=== PATIENT | male | born 1955 | race Caucasian/White ===

== ENCOUNTER 2021-12-29 10:55 | Inpatient (IN) | payer OTHER, MEDICAID ==
[~2021-12-29] VITALS: Ht 170.2 cm; Wt 59.0 kg
--- NOTE | 2021-12-29 11:03 | NUR ---
Patient to ER bed 2 to gown for evaluation. Side rails up. Report given to Kat MORA.
[2021-12-29 11:05] VITALS: BP_SYST 118
--- NOTE | 2021-12-29 11:09 | NUR ---
ER at bedside examining patient.
--- NOTE | 2021-12-29 11:13 | NUR ---
Radiology at bedside for chest xray.
--- NOTE | 2021-12-29 11:17 | NUR ---
Lab at bedside.
--- NOTE | 2021-12-29 11:20 | NUR ---
Pt coming from [facility] due to ascites for a couple weeks. Patient has abdominal distention noted. (-)TTP on abdomen. Patient reports pain 0/10 at this time. Nad noted at this time. Will continue to monitor.
[2021-12-29 11:50] LABS: ANION GAP 5 (5-15); CHLORIDE 100 mmol/L (98-107); CREATININE 1.47 mg/dL (0.55-1.30); GLUCOSE 130 mg/dL (70-99); POTASSIUM 5.3 mmol/L (3.5-5.1); SODIUM SERUM 130 mmol/L (136-145); UREA NITROGEN, BLOOD 48 mg/dL (8-21)
[2021-12-29 11:53] LABS: BASOPHILS % (AUTO) 0.5 % (0.0-2.0); EOSINOPHILS # (AUTO) 0.1 K/uL (0.0-0.4); EOSINOPHILS % (AUTO) 0.9 % (0.0-4.0); HEMATOCRIT 33.2 % (36-54); HEMOGLOBIN 11.5 g/dL (14.0-18.0); LYMPHOCYTES # (AUTO) 1.2 K/uL (1.0-5.5); LYMPHOCYTES % (AUTO) 18.3 % (20.5-51.5); MEAN CORPUSCULAR HEMOGLOBIN 35 pg (27-31); MEAN CORPUSCULAR HGB CONC 35 % (32-36); MEAN CORPUSCULAR VOLUME 101 fL (79.0-98.0); MONOCYTES # (AUTO) 0.6 K/uL (0.0-1.0); MONOCYTES % (AUTO) 9.2 % (1.7-9.3); NEUTROPHILS # (AUTO) 4.5 K/uL (1.8-7.7); NEUTROPHILS % (AUTO) 71.1 % (40.0-70.0); PLATELET COUNT (AUTO) 209 K/uL (130-430); RED BLOOD CELL COUNT(AUTO) 3.31 MIL/uL (4.2-6.2); RED CELL DISTRIBUTION WIDTH 14.6 % (9.0-15.0); WHITE BLOOD COUNT (AUTO) 6.3 K/uL (4.8-10.8)
[2021-12-29 12:00] LABS: GFR AFRICAN AMERICAN 62 mL/min (>90)
[2021-12-29 12:15] LABS: ALANINE AMINOTRANSFERASE 102 U/L (12-78); ALBUMIN 2.2 g/dL (3.4-4.8); ASPARTATE AMINOTRANSFERASE 121 U/L (10-37); TOTAL BILIRUBIN 0.5 mg/dL (0.0-1.0)
--- NOTE | 2021-12-29 12:27 | NUR ---
COVID SPECIMEN OBTAINED AND LABELLED, SENT TO LAB
[2021-12-29] MEDS ORDERED: INSULIN REGULAR, HUMAN 10 UNITS/0.1 ML INJ IVP ONE (12:30)
[2021-12-29] MEDS ORDERED: LACTULOSE 20 GM/30 ML UDC PO ONE (12:30)
[2021-12-29] MEDS ORDERED: DEXTROSE 50% JECT 50 ML DISP.SYRIN IVP ONE (12:30)
[2021-12-29 12:32] LABS: LIPASE 2166 U/L (73-393)
[2021-12-29] MEDS ORDERED: SODIUM POLYSTYRENE SULFONATE 15 GM/60 ML UDBTL PO ONE (13:00)
--- NOTE | 2021-12-29 13:11 | NUR ---
Unable to order PT/PTT and INR order due to coding.
--- NOTE | 2021-12-29 13:12 | NUR ---
Admit bed requested Patient will be admitted to care of . Admitted to med sure unit. Diagnosis acites and Liver cirrhosis Inpatient (Yes or No) y Observation (Yes or No) n Orientation concerns or request close to nursing station (Yes or No) n Covid Status pending On vent or bipap n Isolation requirements n Needs a sitter n From Home (Yes or if No enter name of facility) [facility] Requires Dialysis (Yes or No) n Med Rec Completed (Yes of No) y
--- NOTE | 2021-12-29 13:34 | NUR ---
Covid and MRSA swab done and sent to lab.
--- NOTE | 2021-12-29 13:54 | NUR ---
Patient resting quietly with side rail raised. No acute distress noted. Vital signs within normal range. Will continue to monitor.
[2021-12-29] MEDS ORDERED: RIFA550T5 PO (14:12)
[2021-12-29] MEDS ORDERED: PROP10TA10 PO (14:12)
[2021-12-29] MEDS ORDERED: ASCO500T20 PO (14:12)
[2021-12-29] MEDS ORDERED: MULT-1117 PO (14:12)
[2021-12-29] MEDS ORDERED: METF-518 PO (14:12)
[2021-12-29] MEDS ORDERED: SSREG SUBCUT (14:17)
--- NOTE | 2021-12-29 14:28 | NUR ---
Attempted to give report; RN in med surg floor not available.
[2021-12-29] MEDS: LACTULOSE 20 GM/30 ML UDC PO SCH ×2 (15:00→19:00)
--- NOTE | 2021-12-29 15:00 | NUR ---
ADMISSION NOTE Received patient from ER via gurney. Patient admitted with diagnosis of Liver Cirrhosis. Patient is awake, alert, oriented X 4. Patient oriented to hospital room, call light, toileting, pain management and safety-teach back done. Patient informed that Myriam will be her nurse and that their room number is 122-A. Personal belongings checked and Belongings List documented. Call light within reach.
[2021-12-29 15:10] VITALS: BP_SYST 115
--- NOTE | 2021-12-29 15:31 | NUR ---
CONSULTATION PAGED/CALLED Reason for Consultation: [] ASCITES Person Who was Notified: [] MARCO Consulting Physician: [] DR WARE Auctioneer Art Specialty: [] MARCO Ordering Physician: [] DR CHAPPELL
[2021-12-29] MEDS: NORMAL SALINE 5 ML DISP.SYRIN IVF SCH ×2 (17:31→22:39)
[2021-12-29 18:38] VITALS: BP_SYST 115
[2021-12-29 20:05] VITALS: BP_SYST 89
[2021-12-30] VITALS: BP_SYST 88
[2021-12-30] MEDS: LACTULOSE 20 GM/30 ML UDC PO SCH ×7 (01:08→22:15)
--- NOTE | 2021-12-30 04:00 | NUR ---
PATIENT CONTINUED TO HAVE SBP IN THE HIGH 80'S BUT ASYMPTOMATIC, NO C/O DIZZINESS OR WEAKNESS.
[2021-12-30 08:00] VITALS: BP_SYST 83
[2021-12-30 08:34] LABS: BASOPHILS % (AUTO) 0.4 % (0.0-2.0); EOSINOPHILS # (AUTO) 0.1 K/uL (0.0-0.4); EOSINOPHILS % (AUTO) 0.8 % (0.0-4.0); HEMATOCRIT 29.8 % (36-54); HEMOGLOBIN 10.5 g/dL (14.0-18.0); LYMPHOCYTES # (AUTO) 1.1 K/uL (1.0-5.5); LYMPHOCYTES % (AUTO) 17.5 % (20.5-51.5); MEAN CORPUSCULAR HEMOGLOBIN 35 pg (27-31); MEAN CORPUSCULAR HGB CONC 35 % (32-36); MEAN CORPUSCULAR VOLUME 100 fL (79.0-98.0); MONOCYTES # (AUTO) 0.5 K/uL (0.0-1.0); MONOCYTES % (AUTO) 7.6 % (1.7-9.3); NEUTROPHILS # (AUTO) 4.8 K/uL (1.8-7.7); NEUTROPHILS % (AUTO) 73.7 % (40.0-70.0); PLATELET COUNT (AUTO) 216 K/uL (130-430); RED BLOOD CELL COUNT(AUTO) 2.98 MIL/uL (4.2-6.2); RED CELL DISTRIBUTION WIDTH 14.8 % (9.0-15.0); WHITE BLOOD COUNT (AUTO) 6.6 K/uL (4.8-10.8)
[2021-12-30 08:53] LABS: CALCIUM 7.8 mg/dL (8.4-11.0); CREATININE 1.32 mg/dL (0.55-1.30); POTASSIUM 3.2 mmol/L (3.5-5.1)
[2021-12-30 09:07] LABS: THYROID STIMULATING HORMONE 2.59 uIu/mL (0.36-3.74); TOTAL BILIRUBIN 0.5 mg/dL (0.0-1.0)
[2021-12-30 12:00] VITALS: BP_SYST 106
[2021-12-30] MEDS ORDERED: POTASSIUM CHLORIDE 20 MEQ TAB.PRT.SR PO ONE (14:00)
[2021-12-30] MEDS ORDERED: DIATR MEGLU/DIATRIZ SOD 30 ML SOLUTION PO ONE (14:11)
[2021-12-30] MEDS: NORMAL SALINE 5 ML DISP.SYRIN IVF SCH ×2 (18:15→22:00)
--- NOTE | 2021-12-30 18:40 | NUR ---
Dr Nelson contacted and made aware that Mr Brock has elected not to complete oral contrast stating that it was too much to drink. Dr Nelson stated that the client could still complete the exam without contrast. Staff from CT came to collect Mr Brock for the exam and he then stated that he would try to drink the contrast within the next few hours.
--- NOTE | 2021-12-30 18:45 | NUR ---
Hand off has been given to Marv
--- NOTE | 2021-12-30 18:45 | NUR ---
danis Lozano has been assessed as indicated. He continues to deny pain. He completed a paracentesis today with 4L of fluid removed. The fluid was taken to the lab for examination. He tolerated the procedure well. He requests lots of orange juice this shift. He has completed no less than 6 servings. He has declined his lactulose. He states that this is because it causes loose stools and he prefers to take that medication at home where he finds it easier to use the restroom. He continues to deny pain. 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 Mr Brock thought that he heard is brother and sister in law in the hallway. They were not here. He was unable to recall the number so that they could be contacted for him to speak to them. The number was obtained from his daughter Nita. His [id number] is April Brock [phone]. Both of these numbers were given to the incoming shift with the hopes that they will be able to assist Mr Brock with placing calls to both of them. At this time Mr Brock has no s/s of distress or discomfort and is resting quietly
[2021-12-30 20:00] VITALS: BP_SYST 83
[2021-12-30 20:21] LABS: APPEARANCE,SPUN,BODY FLUID SLIGHTLY HAZY (CLEAR); BODY FLUID COLOR LT YELLOW (LT YELLOW); BODY FLUID TOTAL VOLUME 4900 mL; RBC, BODY FLUID 7 /uL; SOURCE/TYPE ,BODY FLUID PARACENTESIS; WBC, BODY FLUID 23 /uL
[2021-12-30 20:22] LABS: LYMPHOCYTES, BODY FLUID 71 %; MONOCYTES,BODY FLUID 5 %; NEUTROPHIL, BODY FLUID 24 %
[2021-12-30 20:23] LABS: BF APPEARANCE UNSPUN SLIGHTLY HAZY (CLEAR)
[2021-12-30] MEDS ORDERED: ALBUMIN HUMAN 25% 200 ML IV ONE (20:45)
--- NOTE | 2021-12-30 20:45 | NUR ---
handoff was given at 1915
--- NOTE | 2021-12-30 21:59 | NUR ---
recieved pt from am nurse. pt is aox3-4, anxious, lungs are clear, pt is emaciated. pt cleared 50% of dinner plate. Pt is ambulatory but weak. Patient admitted with diagnosis of Liver Cirrhosis.. Patient oriented to hospital room, call light, toileting, pain management and safety-teach back done. Patient informed that daughter jono is in contact with him to help ease anxiety. Pt scheduled for cat scan in PM. Call light within reach.
--- NOTE | 2021-12-30 22:01 | NUR ---
pt recieving 200 ml 25% albumin for low bp per MD. bp 80/40
[2021-12-31] VITALS: BP_SYST 88
[2021-12-31] MEDS: LACTULOSE 20 GM/30 ML UDC PO SCH ×6 (03:00→23:00)
[2021-12-31] MEDS: NORMAL SALINE 5 ML DISP.SYRIN IVF SCH (06:00)
[2021-12-31 07:00] VITALS: BP_SYST 104
[2021-12-31 08:00] VITALS: BP_SYST 104
[2021-12-31 08:32] LABS: ALBUMIN 2.1 g/dL (3.4-4.8); CALCIUM 7.6 mg/dL (8.4-11.0); CREATININE 1.24 mg/dL (0.55-1.30); POTASSIUM 4.9 mmol/L (3.5-5.1); TOTAL BILIRUBIN 0.4 mg/dL (0.0-1.0)
[2021-12-31 08:39] LABS: BASOPHILS % (AUTO) 0.3 % (0.0-2.0); EOSINOPHILS % (AUTO) 0.5 % (0.0-4.0); HEMATOCRIT 31.7 % (36-54); HEMOGLOBIN 10.9 g/dL (14.0-18.0); LYMPHOCYTES # (AUTO) 0.7 K/uL (1.0-5.5); LYMPHOCYTES % (AUTO) 10.7 % (20.5-51.5); MEAN CORPUSCULAR HEMOGLOBIN 34 pg (27-31); MEAN CORPUSCULAR HGB CONC 34 % (32-36); MEAN CORPUSCULAR VOLUME 100 fL (79.0-98.0); MONOCYTES # (AUTO) 0.5 K/uL (0.0-1.0); MONOCYTES % (AUTO) 6.8 % (1.7-9.3); NEUTROPHILS # (AUTO) 5.4 K/uL (1.8-7.7); NEUTROPHILS % (AUTO) 81.7 % (40.0-70.0); PLATELET COUNT (AUTO) 217 K/uL (130-430); RED BLOOD CELL COUNT(AUTO) 3.17 MIL/uL (4.2-6.2); RED CELL DISTRIBUTION WIDTH 14.9 % (9.0-15.0); WHITE BLOOD COUNT (AUTO) 6.7 K/uL (4.8-10.8)
[2021-12-31 08:47] LABS: TOTAL IRON BIND. CAPACITY 72 ug/dL (250-450)
[2021-12-31 09:07] LABS: PROTHROMBIN TIME 10.6 SECS (9.5-12.5)
[2021-12-31 10:57] LABS: BODY FLUID GLUCOSE 133 mg/dL
[2021-12-31 11:01] LABS: BODY FLUID TOTAL PROTEIN 1.4 g/dL
[2021-12-31 12:00] VITALS: BP_SYST 97
--- NOTE | 2021-12-31 15:20 | NUR ---
Dietitian Recommendations * CCHO, Mechanical Soft, Finely Chopped diet, Glucerna BID (ONS yields 440 kcal/day, 20 gm protein/day) * Encourage increase PO intakes LP, MS, RD Please refer to Nutrition Assessment for details. Addendum: 12/31/21 at [address] Amended: Links added.
[2021-12-31 16:16] VITALS: BP_SYST 96
--- NOTE | 2021-12-31 18:25 | NUR ---
Patient still not eating despite getting "N[place]ien dish delivered to him as requested." Patient reinforced teaching to put food in his stomach and drink liquids as tolerated. Per patient, does not feel like eating
--- NOTE | 2021-12-31 19:18 | NUR ---
END OF SHIFT REPORT GIVEN TO ABBY METZGER. THANK YOU
[2022-01-01] MEDS: LACTULOSE 20 GM/30 ML UDC PO SCH ×5 (03:00→15:00)
[2022-01-01] MEDS: NORMAL SALINE 5 ML DISP.SYRIN IVF SCH ×2 (06:00→14:47)
[2022-01-01 08:00] VITALS: BP_SYST 82
--- NOTE | 2022-01-01 08:00 | NUR ---
OPENING NOTE Patient in bed resting, no sign of distress or pain. IV site is clean, dry, intact and saline locked. Patient drank his entire ensure for breakfast. All needs met at this time and safety checks made.
[2022-01-01 08:06] LABS: AFP, TUMOR MARKER 2.4 ng/mL (0.0-8.4)
--- NOTE | 2022-01-01 10:33 | NUR ---
FANCY STITCHER TO BEDSIDE TO SEE PATIENT FANCY STITCHER spoke with patient, no new orders at this time. FANCY STITCHER is aware that patient has been refusing his enulose.
[2022-01-01] MEDS ORDERED: ACETAMINOPHEN 325 MG TABLET PO PRN (10:45)
[2022-01-01 11:06] LABS: HEPATITIS A AB, IgM Negative (Negative); HEPATITIS B CORE AB, IgM Negative (Negative); HEPATITIS B SURFACE AG Negative (Negative)
[2022-01-01 12:00] VITALS: BP_SYST 99
--- NOTE | 2022-01-01 14:08 | NUR ---
Cm : faxed snf referral and dc back order to [facility] fax # [phone], and received call back from juan Rock room # 29 C, report # tel [phone]. 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 --PAUL Card made aware, dc package placed in nursing unit. Dispo code 03.
--- NOTE | 2022-01-01 16:13 | NUR ---
REPORT GIVEN TO FACILITY Spoke to ABBY Raygoza at [facility] and gave report. All questions answered.
--- NOTE | 2022-01-01 16:14 | NUR ---
PT TRANSFERRED Report given to Idalmis at [facility]. Transfer packet with Transfer Orders and Medication Reconciliation form given to EMT with report. Exitcare provided. [facility] ID band removed, replaced with ID band with pt's name and . IV catheter removed, intact and dressing applied, no active bleeding. All belongings sent with patient. Patient left floor via gurney escorted by EMT in no distress.
--- NOTE | 2022-01-02 08:33 | NUR ---
Dispo code 03
[2022-01-02 13:41] LABS: FERRITIN 1492 ng/mL (30-400)
== END 2022-01-01 16:15 | DRG 432 ==
LOC: SED 10:55 → SMU 12:56
PROVIDERS: ADMIT Internal Medicine; ATTEND Internal Medicine
PROC: 0W9G3ZZ Drainage of Peritoneal Cavity, Percutaneous Approach (ICD-10-PCS; principal; 2021-12-30)
DX: K70.40 Alcoholic hepatic failure without coma (principal); N17.0 Acute kidney failure with tubular necrosis; K70.31 Alcoholic cirrhosis of liver with ascites; D64.9 Anemia, unspecified; E11.9 Type 2 diabetes mellitus without complications; F10.20 Alcohol dependence, uncomplicated; B19.20 Unspecified viral hepatitis C without hepatic coma; Z20.822 Contact with and (suspected) exposure to COVID-19; Z79.899 Other long term (current) drug therapy
CPT/HCPCS: 36415; 49083; 71045; 76376; 76700-TC; 80053; 80074; 82042; 82105; 82140; 82728; 82947; 83540; 83550; 83690; 83880; 84157; 84443; 84484; 85025; 85610-TC; 85730-TC; 87070-TC; 87081; 88108; 89051-TC; 89060-TC; 93005; 99285; Q9964

== ENCOUNTER 2022-01-16 19:44 | Inpatient (IN) | payer OTHER, MEDICAID ==
[~2022-01-16] VITALS: Ht 170.2 cm; Wt 54.4 kg
[~2022-01-16 19:44] MED LIST: ASCO500T20 PO; METF-518 PO; MULT-1117 PO; PROP10TA10 PO; RIFA550T5 PO; SSREG SUBCUT
[2022-01-16 21:05] VITALS: BP_SYST 106
[2022-01-16 22:11] LABS: BASOPHILS % (AUTO) 0.4 % (0.0-2.0); EOSINOPHILS % (AUTO) 0.3 % (0.0-4.0); HEMATOCRIT 30.4 % (36-54); HEMOGLOBIN 10.5 g/dL (14.0-18.0); LYMPHOCYTES # (AUTO) 1.1 K/uL (1.0-5.5); LYMPHOCYTES % (AUTO) 13.2 % (20.5-51.5); MEAN CORPUSCULAR HEMOGLOBIN 34 pg (27-31); MEAN CORPUSCULAR HGB CONC 34 % (32-36); MEAN CORPUSCULAR VOLUME 100 fL (79.0-98.0); MONOCYTES # (AUTO) 0.4 K/uL (0.0-1.0); MONOCYTES % (AUTO) 4.4 % (1.7-9.3); NEUTROPHILS # (AUTO) 6.7 K/uL (1.8-7.7); NEUTROPHILS % (AUTO) 81.7 % (40.0-70.0); PLATELET COUNT (AUTO) 181 K/uL (130-430); RED BLOOD CELL COUNT(AUTO) 3.05 MIL/uL (4.2-6.2); WHITE BLOOD COUNT (AUTO) 8.2 K/uL (4.8-10.8)
[2022-01-16 22:15] LABS: CREATININE 1.55 mg/dL (0.55-1.30); POTASSIUM 4.3 mmol/L (3.5-5.1)
[2022-01-16 22:18] LABS: INR 1.1 (0.80-1.20); PROTHROMBIN TIME 11.1 SECS (9.5-12.5)
[2022-01-16 22:32] LABS: ALBUMIN 1.8 g/dL (3.4-4.8); C-REACTIVE PROTEIN QUANT 2.3 mg/dL (0-0.5); TOTAL BILIRUBIN 0.4 mg/dL (0.0-1.0)
[2022-01-16] MEDS ORDERED: ONDANSETRON HCL 4 MG/2 ML VIAL IVP PRN (23:30)
[2022-01-16] MEDS ORDERED: D5/0.45 NS 1,000 ML IV SCH (23:30)
[2022-01-17] MEDS ORDERED: BISA5TAB10 PO (00:07)
[2022-01-17] MEDS ORDERED: BISA10SU61 RC (00:08)
[2022-01-17] MEDS ORDERED: ROCPM1 IV (00:10)
[2022-01-17] MEDS ORDERED: DOCU-156 PO (00:11)
[2022-01-17] MEDS ORDERED: LACT10SO7 PO (00:12)
[2022-01-17] MEDS ORDERED: MULT-300 PO (00:13)
[2022-01-17] MEDS ORDERED: ONDA4TAB55 PO (00:14)
[2022-01-17] MEDS ORDERED: PRO40 PO (00:15)
[2022-01-17] MEDS ORDERED: SUCR1TAB78 PO (00:18)
[2022-01-17] MEDS ORDERED: ACET325T53 PO (00:19)
[2022-01-17 02:20] VITALS: BP_SYST 106
[2022-01-17 07:02] LABS: ALBUMIN 1.8 g/dL (3.4-4.8); CALCIUM 7.8 mg/dL (8.4-11.0); CREATININE 1.45 mg/dL (0.55-1.30); TOTAL BILIRUBIN 0.6 mg/dL (0.0-1.0)
[2022-01-17 07:03] LABS: BASOPHILS % (AUTO) 0.3 % (0.0-2.0); EOSINOPHILS % (AUTO) 0.2 % (0.0-4.0); LYMPHOCYTES % (AUTO) 13.3 % (20.5-51.5); MEAN CORPUSCULAR HEMOGLOBIN 36 pg (27-31); MEAN CORPUSCULAR HGB CONC 36 % (32-36); MEAN CORPUSCULAR VOLUME 100 fL (79.0-98.0); MONOCYTES # (AUTO) 0.3 K/uL (0.0-1.0); MONOCYTES % (AUTO) 4.7 % (1.7-9.3); NEUTROPHILS # (AUTO) 5.9 K/uL (1.8-7.7); NEUTROPHILS % (AUTO) 81.5 % (40.0-70.0); PLATELET COUNT (AUTO) 172 K/uL (130-430); RED BLOOD CELL COUNT(AUTO) 2.81 MIL/uL (4.2-6.2); WHITE BLOOD COUNT (AUTO) 7.2 K/uL (4.8-10.8)
[2022-01-17 07:53] LABS: INR 1.1 (0.80-1.20); PROTHROMBIN TIME 11.6 SECS (9.5-12.5)
[2022-01-17 08:00] VITALS: BP_SYST 102
[2022-01-17] MEDS ORDERED: LIDOCAINE 1% 10 MG/ML, 20 ML MDV INJ ONE (09:15)
[2022-01-17] MEDS ORDERED: DOCUSATE SODIUM 100 MG CAPSULE PO PRN (11:30)
[2022-01-17] MEDS ORDERED: INSULIN REGULAR, HUMAN 100 UNITS/ML, 10 ML VIAL (humuLIN R) SUBCUT PRN (11:30)
[2022-01-17] MEDS ORDERED: BISACODYL 10 MG/SUPPOSITORY RC PRN (11:30)
[2022-01-17] MEDS: INSULIN REGULAR, HUMAN 100 UNITS/ML, 10 ML VIAL SUBCUT SCH ×3 (11:30→21:00)
[2022-01-17] MEDS: SUCRALFATE 1 GM TABLET PO SCH ×3 (12:15→21:23)
[2022-01-17] MEDS: NACL 0.9% 1,000 ML IV SCH (15:36)
[2022-01-17 16:03] VITALS: BP_SYST 94
[2022-01-17] MEDS: MORPHINE 2 MG/ML INJ. SYRINGE IVP PRN (16:49)
[2022-01-17] MEDS ORDERED: LACTULOSE 20 GM/30 ML UDC PO PRN (17:30)
[2022-01-17] MEDS ORDERED: SODIUM PHOSPHATE,MONO-DIBASIC 133 ML ENEMA RC ONE (17:30)
[2022-01-17] MEDS: PROPRANOLOL HCL 10 MG TABLET (INDERAL) PO SCH (21:23)
[2022-01-17] MEDS: PANTOPRAZOLE SODIUM 40 MG TAB PO SCH (21:24)
[2022-01-17 23:30] LABS: BODY FLUID GLUCOSE 120 mg/dL
[2022-01-17 23:31] LABS: BODY FLUID TOTAL PROTEIN < 2.0 g/dL
[2022-01-18 00:54] VITALS: BP_SYST 102
[2022-01-18] MEDS: INSULIN REGULAR, HUMAN 100 UNITS/ML, 10 ML VIAL SUBCUT SCH ×2 (07:00→11:14)
[2022-01-18 08:00] VITALS: BP_SYST 80
[2022-01-18 08:07] LABS: BASOPHILS % (AUTO) 0.3 % (0.0-2.0); EOSINOPHILS # (AUTO) 0.1 K/uL (0.0-0.4); EOSINOPHILS % (AUTO) 1.1 % (0.0-4.0); HEMATOCRIT 25.6 % (36-54); HEMOGLOBIN 8.9 g/dL (14.0-18.0); LYMPHOCYTES # (AUTO) 1.1 K/uL (1.0-5.5); LYMPHOCYTES % (AUTO) 20.8 % (20.5-51.5); MEAN CORPUSCULAR HEMOGLOBIN 35 pg (27-31); MEAN CORPUSCULAR HGB CONC 35 % (32-36); MEAN CORPUSCULAR VOLUME 100 fL (79.0-98.0); MONOCYTES # (AUTO) 0.4 K/uL (0.0-1.0); MONOCYTES % (AUTO) 7.9 % (1.7-9.3); NEUTROPHILS # (AUTO) 3.9 K/uL (1.8-7.7); NEUTROPHILS % (AUTO) 69.9 % (40.0-70.0); PLATELET COUNT (AUTO) 148 K/uL (130-430); RED BLOOD CELL COUNT(AUTO) 2.57 MIL/uL (4.2-6.2); RED CELL DISTRIBUTION WIDTH 15.9 % (9.0-15.0); WHITE BLOOD COUNT (AUTO) 5.5 K/uL (4.8-10.8)
[2022-01-18 08:31] LABS: CALCIUM 7.5 mg/dL (8.4-11.0); CREATININE 1.24 mg/dL (0.55-1.30)
[2022-01-18] MEDS: SUCRALFATE 1 GM TABLET PO SCH ×4 (08:46→22:20)
[2022-01-18] MEDS: ASCORBIC ACID 500 MG TABLET PO SCH (08:46)
[2022-01-18] MEDS: PANTOPRAZOLE SODIUM 40 MG TAB PO SCH ×2 (08:46→22:20)
[2022-01-18] MEDS ORDERED: ALBUMIN HUMAN 25% 200 ML IV ONE (09:00)
[2022-01-18] MEDS: PROPRANOLOL HCL 10 MG TABLET (INDERAL) PO SCH ×2 (09:00→21:00)
[2022-01-18] MEDS: NACL 0.9% 1,000 ML IV SCH (09:13)
[2022-01-18 12:20] VITALS: BP_SYST 92
[2022-01-18] MEDS ORDERED: INSULIN REGULAR, HUMAN 100 UNITS/ML, 10 ML VIAL (humuLIN R) SUBCUT PRN (13:45)
[2022-01-18 16:52] VITALS: BP_SYST 81
[2022-01-18 20:05] VITALS: BP_SYST 85
[2022-01-19] MEDS ORDERED: cefTRIAXone 1 GM in D5W 50 ML IV SCH ×2
[2022-01-19 01:35] VITALS: BP_SYST 110
[2022-01-19] MEDS ORDERED: cefTRIAXone 1 GM VIAL ONE (03:13)
[2022-01-19] MEDS: SUCRALFATE 1 GM TABLET PO SCH ×2 (06:10→12:53)
[2022-01-19] MEDS: NACL 0.9% 1,000 ML IV SCH (06:10)
[2022-01-19 08:00] VITALS: BP_SYST 97
[2022-01-19] MEDS: ASCORBIC ACID 500 MG TABLET PO SCH (08:27)
[2022-01-19] MEDS: PANTOPRAZOLE SODIUM 40 MG TAB PO SCH (08:27)
[2022-01-19] MEDS: PROPRANOLOL HCL 10 MG TABLET (INDERAL) PO SCH (08:27)
[2022-01-19] MEDS ORDERED: FUROSEMIDE 20 MG TABLET PO SCH (09:00)
[2022-01-19] MEDS ORDERED: SPIRONOLACTONE 50 MG TABLET (ALDACTONE) PO SCH (09:00)
[2022-01-19] MEDS: MORPHINE 2 MG/ML INJ. SYRINGE IVP PRN (10:10)
[2022-01-19 12:01] VITALS: BP_SYST 88
[2022-01-19 15:09] VITALS: BP_SYST 97
[2022-01-19 16:31] VITALS: BP_SYST 112
== END 2022-01-19 16:47 | DRG 432 ==
LOC: SED 19:44 → SMU 23:22
PROVIDERS: ADMIT Internal Medicine; ATTEND Internal Medicine
PROC: 0W9G3ZX Drainage of Peritoneal Cavity, Percutaneous Approach, Diagnostic (ICD-10-PCS; principal; 2022-01-16)
DX: K74.60 Unspecified cirrhosis of liver (principal); N17.0 Acute kidney failure with tubular necrosis; E46 Unspecified protein-calorie malnutrition; R18.8 Other ascites; Z68.1 Body mass index [BMI] 19.9 or less, adult; R64 Cachexia; E11.9 Type 2 diabetes mellitus without complications; I10 Essential (primary) hypertension; Z20.822 Contact with and (suspected) exposure to COVID-19; E78.5 Hyperlipidemia, unspecified; Z79.1 Long term (current) use of non-steroidal anti-inflammatories (NSAID); Z79.899 Other long term (current) drug therapy; Z79.4 Long term (current) use of insulin
CPT/HCPCS: 36415; 49083; 80048; 80053; 82140; 82150; 82947; 82962; 83605; 83690; 84157; 85025; 85610-TC; 85730-TC; 86140; 87070-TC; 87081; 88108; 93005; 99285; J0696; J1815; J2001; J2270; J7060

== ENCOUNTER 2022-01-31 18:55 | Observation (INO) | payer OTHER, MEDICAID ==
[~2022-01-31] VITALS: Ht 170.2 cm; Wt 59.0 kg
[~2022-01-31 18:55] MED LIST changes: +ACET325T53 PO; +BISA10SU61 RC; +BISA5TAB10 PO; +DOCU-156 PO; +LACT10SO7 PO; -METF-518 PO; -MULT-1117 PO; +MULT-300 PO; +ONDA4TAB55 PO; +PRO40 PO; -RIFA550T5 PO; +ROCPM1 IV; +SUCR1TAB78 PO
[2022-01-31 19:18] VITALS: BP_SYST 90
[2022-01-31 20:34] LABS: BASOPHILS % (AUTO) 0.3 % (0.0-2.0); EOSINOPHILS % (AUTO) 0.4 % (0.0-4.0); HEMATOCRIT 28.5 % (36-54); HEMOGLOBIN 9.8 g/dL (14.0-18.0); LYMPHOCYTES # (AUTO) 0.8 K/uL (1.0-5.5); LYMPHOCYTES % (AUTO) 11.9 % (20.5-51.5); MEAN CORPUSCULAR HEMOGLOBIN 34 pg (27-31); MEAN CORPUSCULAR HGB CONC 34 % (32-36); MEAN CORPUSCULAR VOLUME 100 fL (79.0-98.0); MONOCYTES # (AUTO) 0.3 K/uL (0.0-1.0); MONOCYTES % (AUTO) 3.8 % (1.7-9.3); NEUTROPHILS # (AUTO) 5.6 K/uL (1.8-7.7); NEUTROPHILS % (AUTO) 83.6 % (40.0-70.0); PLATELET COUNT (AUTO) 168 K/uL (130-430); RED BLOOD CELL COUNT(AUTO) 2.86 MIL/uL (4.2-6.2); RED CELL DISTRIBUTION WIDTH 16.6 % (9.0-15.0); WHITE BLOOD COUNT (AUTO) 6.7 K/uL (4.8-10.8)
[2022-01-31 20:35] LABS: CREATININE 1.89 mg/dL (0.55-1.30); POTASSIUM 4.9 mmol/L (3.5-5.1)
[2022-01-31 20:42] LABS: ALBUMIN 1.9 g/dL (3.4-4.8); TOTAL BILIRUBIN 0.6 mg/dL (0.0-1.0)
[2022-01-31 20:44] LABS: INR 1.1 (0.80-1.20); PROTHROMBIN TIME 11.2 SECS (9.5-12.5)
[2022-01-31 21:54] LABS: BILIRUBIN,URINE NEGATIVE (NEGATIVE); BLOOD, URINE NEGATIVE (NEGATIVE); CLARITY/URINE CLEAR (CLEAR); COLOR,URINE YELLOW (YELLOW); GLUCOSE,URINE NEGATIVE (NEGATIVE); KETONES,URINE NEGATIVE (NEGATIVE); LEUKOCYTE ESTERASE ,URINE NEGATIVE (NEGATIVE); NITRITE, URINE NEGATIVE (NEGATIVE); PH,URINE 5.5 (5.0-8.0); PROTEIN URINE NEGATIVE (NEGATIVE); UROBILINOGEN,URINE 0.2 (0.2-1.0)
[2022-01-31] MEDS ORDERED: DEXTROSE 50% JECT 50 ML DISP.SYRIN ONE (23:03)
[2022-01-31] MEDS ORDERED: DEXTROSE 50% JECT 50 ML DISP.SYRIN IVP ONE (23:15)
[2022-02-01] VITALS (8 sets, daily range): BP systolic 90–115
[2022-02-01 07:03] LABS: INR 1.1 (0.80-1.20); PROTHROMBIN TIME 11.4 SECS (9.5-12.5)
[2022-02-01 07:35] LABS: ALBUMIN 1.9 g/dL (3.4-4.8); CALCIUM 7.7 mg/dL (8.4-11.0); CREATININE 1.86 mg/dL (0.55-1.30); POTASSIUM 4.9 mmol/L (3.5-5.1); TOTAL BILIRUBIN 0.8 mg/dL (0.0-1.0)
[2022-02-01] MEDS ORDERED: LIDOCAINE 1%, 20 ML MDV 0 ML ONE (07:35)
[2022-02-01 08:09] LABS: BASOPHILS % (AUTO) 0.2 % (0.0-2.0); EOSINOPHILS % (AUTO) 0.1 % (0.0-4.0); HEMATOCRIT 29.2 % (36-54); HEMOGLOBIN 10.6 g/dL (14.0-18.0); LYMPHOCYTES # (AUTO) 0.6 K/uL (1.0-5.5); LYMPHOCYTES % (AUTO) 9.2 % (20.5-51.5); MEAN CORPUSCULAR HEMOGLOBIN 36 pg (27-31); MEAN CORPUSCULAR HGB CONC 36 % (32-36); MEAN CORPUSCULAR VOLUME 100 fL (79.0-98.0); MONOCYTES # (AUTO) 0.2 K/uL (0.0-1.0); MONOCYTES % (AUTO) 3.1 % (1.7-9.3); NEUTROPHILS # (AUTO) 5.4 K/uL (1.8-7.7); NEUTROPHILS % (AUTO) 87.4 % (40.0-70.0); PLATELET COUNT (AUTO) 158 K/uL (130-430); RED BLOOD CELL COUNT(AUTO) 2.91 MIL/uL (4.2-6.2); RED CELL DISTRIBUTION WIDTH 16.4 % (9.0-15.0); WHITE BLOOD COUNT (AUTO) 6.2 K/uL (4.8-10.8)
[2022-02-01] MEDS ORDERED: DOCUSATE SODIUM 100 MG CAPSULE PO PRN (10:15)
[2022-02-01] MEDS ORDERED: INSULIN REGULAR, HUMAN 100 UNITS/ML, 10 ML VIAL (humuLIN R) SUBCUT PRN (10:15)
[2022-02-01] MEDS: SUCRALFATE 1 GM TABLET PO SCH ×3 (12:00→21:26)
[2022-02-01] MEDS: PROPRANOLOL HCL 10 MG TABLET (INDERAL) PO SCH (21:00)
[2022-02-01] MEDS: PANTOPRAZOLE SODIUM 40 MG TAB PO SCH (21:27)
[2022-02-02] VITALS: BP_SYST 98
[2022-02-02] MEDS: SUCRALFATE 1 GM TABLET PO SCH ×2 (06:17→11:59)
[2022-02-02 07:56] LABS: BASOPHILS % (AUTO) 0.1 % (0.0-2.0); EOSINOPHILS % (AUTO) 0.3 % (0.0-4.0); HEMATOCRIT 25.4 % (36-54); LYMPHOCYTES # (AUTO) 0.7 K/uL (1.0-5.5); MEAN CORPUSCULAR HEMOGLOBIN 35 pg (27-31); MEAN CORPUSCULAR HGB CONC 35 % (32-36); MEAN CORPUSCULAR VOLUME 99 fL (79.0-98.0); MONOCYTES # (AUTO) 0.2 K/uL (0.0-1.0); MONOCYTES % (AUTO) 3.1 % (1.7-9.3); NEUTROPHILS # (AUTO) 5.6 K/uL (1.8-7.7); NEUTROPHILS % (AUTO) 85.5 % (40.0-70.0); PLATELET COUNT (AUTO) 130 K/uL (130-430); RED BLOOD CELL COUNT(AUTO) 2.56 MIL/uL (4.2-6.2); RED CELL DISTRIBUTION WIDTH 16.5 % (9.0-15.0); WHITE BLOOD COUNT (AUTO) 6.5 K/uL (4.8-10.8)
[2022-02-02] MEDS ORDERED: MULTIVITS,CA,MINERALS/IRON/FA 1 TABLET PO SCH (09:00)
[2022-02-02] MEDS: PANTOPRAZOLE SODIUM 40 MG TAB PO SCH (09:20)
[2022-02-02] MEDS: PROPRANOLOL HCL 10 MG TABLET (INDERAL) PO SCH (09:20)
[2022-02-02 09:30] VITALS: BP_SYST 103
[2022-02-02 09:38] VITALS: BP_SYST 103
[2022-02-02 10:02] LABS: CALCIUM 7.8 mg/dL (8.4-11.0); CREATININE 1.77 mg/dL (0.55-1.30); POTASSIUM 4.9 mmol/L (3.5-5.1)
[2022-02-02 11:24] VITALS: BP_SYST 89
== END 2022-02-02 12:05 ==
LOC: SED 18:55 → INTOOBSV 21:43 → SMU 21:43
PROVIDERS: ADMIT Internal Medicine; ATTEND Internal Medicine
DX: K74.60 Unspecified cirrhosis of liver (principal); Z20.822 Contact with and (suspected) exposure to COVID-19; E46 Unspecified protein-calorie malnutrition; R64 Cachexia; R74.01 Elevation of levels of liver transaminase levels; E11.9 Type 2 diabetes mellitus without complications; Z79.899 Other long term (current) drug therapy
CPT/HCPCS: 96374; 80053 ×2; 82962 ×3; 83690; 85025 ×3; 85610 ×2; 85730 ×2; 87081; 36415 ×3; 99284; 81003; 87426; 82140; 87070; 87075; 49083; 80048; J1815; G0378 ×2; J2001